=== PATIENT | male | born 1990 | race Two or more races ===

== ENCOUNTER 2020-08-29 01:37 | Emergency (ER) | payer OTHER ==
[~2020-08-29] VITALS: Ht 167.6 cm; Wt 81.6 kg
== END 2020-08-29 05:40 | disposition home or self-care (01) ==
LOC: ER 01:37
DX: B34.9 Viral infection, unspecified (principal); Z03.818 Encounter for observation for suspected exposure to other biological agents ruled out; R06.02 Shortness of breath; R05 Cough

== ENCOUNTER 2020-11-14 07:08 | Emergency (ER) | payer OTHER ==
[~2020-11-14] VITALS: Ht 167.6 cm; Wt 81.6 kg
== END 2020-11-14 09:12 | disposition home or self-care (01) ==
LOC: ER 07:08
DX: I10 Essential (primary) hypertension (principal); F06.4 Anxiety disorder due to known physiological condition

== ENCOUNTER 2021-06-04 17:22 | Emergency (ER) | payer OTHER ==
[~2021-06-04] VITALS: Ht 167.6 cm; Wt 81.6 kg
== END 2021-06-04 20:52 | disposition home or self-care (01) ==
LOC: ER 17:22
DX: U07.1 COVID-19 (principal); B34.9 Viral infection, unspecified; R50.9 Fever, unspecified; R51.9 Headache, unspecified; H92.02 Otalgia, left ear; R09.81 Nasal congestion

== ENCOUNTER 2021-06-13 17:13 | Inpatient (IN) | payer OTHER ==
[~2021-06-13] VITALS: Ht 167.6 cm; Wt 81.6 kg
--- NOTE | 2021-06-13 17:55 | NUR ---
SE RECIBE PTE MASCULINO ALERTA Y ORIENTADO EN [facility] E[facility]ER[facility] REFIERE COVID-19 POSITIVO , FALTA DE AIRE, TOS, SECRECIONES CLARAS DESDE HACE VARIOS RODNEY. INDICA VISITO APCH EL SABADO Y FUE DADO DE KRYSTEN BERNARDINO SINTOMAS PERSISTEN. SE UBICA EN [facility] Y SE PRESENTA PTE A .
--- NOTE | 2021-06-13 19:40 | NUR ---
PTE ALERTA,ESTABLE Y ORIENTADO.SE EDUCA SOBRE EL TRATAMIENTO QUE SE LE REALIZARA EN EL HOSPITAL Y ESTA REFIERE ENTENDER.
== END 2021-06-23 19:05 | disposition home or self-care (01) | DRG 177 ==
LOC: ER 17:13 → MEDJ 23:35
PROVIDERS: ADMIT Internal Medicine; ATTEND Internal Medicine
PROC: 8E0ZXY6 Isolation (ICD-10-PCS; 2021-06-13)
PROC: 3E0F7SF Introduction of Other Gas into Respiratory Tract, Via Natural or Artificial Opening (ICD-10-PCS; 2021-06-13)
PROC: XW033E5 Introduction of Remdesivir Anti-infective into Peripheral Vein, Percutaneous Approach, New Technology Group 5 (ICD-10-PCS; principal; 2021-06-14)
PROC: BW24ZZZ Computerized Tomography (CT Scan) of Chest and Abdomen (ICD-10-PCS; 2021-06-14)
PROC: 4A12X4Z Monitoring of Cardiac Electrical Activity, External Approach (ICD-10-PCS; 2021-06-14)
DX: U07.1 COVID-19 (principal); J12.82 Pneumonia due to coronavirus disease 2019; R09.02 Hypoxemia

== ENCOUNTER 2021-06-28 21:39 | Emergency (ER) | payer OTHER ==
[~2021-06-28] VITALS: Ht 167.6 cm; Wt 81.6 kg
[2021-06-29] MEDS ORDERED: ZITHROMAX500 MG PO (12:31)
== END 2021-06-29 12:32 | disposition home or self-care (01) ==
LOC: ER 21:39
DX: J22 Unspecified acute lower respiratory infection (principal); Z20.822 Contact with and (suspected) exposure to COVID-19; J11.1 Influenza due to unidentified influenza virus with other respiratory manifestations

== ENCOUNTER 2021-07-15 10:28 | Emergency (ER) | payer OTHER ==
[~2021-07-15] VITALS: Ht 167.6 cm; Wt 74.8 kg
[~2021-07-15 10:28] MED LIST: ZITHROMAX500 MG PO
== END 2021-07-15 13:43 | disposition home or self-care (01) ==
LOC: ER 10:28
DX: U07.1 COVID-19 (principal); J12.82 Pneumonia due to coronavirus disease 2019; M25.59 Pain in other specified joint

== ENCOUNTER 2021-07-20 14:15 | Outpatient (CLI) | payer OTHER | END 2021-07-20 14:17 | disposition home or self-care (01) | LOC: LAB 14:15 | PROVIDERS: ATTEND Internal Medicine | DX: U07.1 COVID-19 (principal); J12.82 Pneumonia due to coronavirus disease 2019 ==

== ENCOUNTER 2021-08-09 19:27 | Emergency (ER) | payer OTHER ==
[~2021-08-09] VITALS: Ht 167.6 cm; Wt 81.6 kg
== END 2021-08-09 23:26 | disposition home or self-care (01) ==
LOC: ER 19:27
DX: U07.1 COVID-19 (principal); J12.89 Other viral pneumonia; R06.02 Shortness of breath

== ENCOUNTER 2021-09-09 15:40 | Emergency (ER) | payer OTHER ==
[~2021-09-09] VITALS: Ht 167.6 cm; Wt 81.6 kg
== END 2021-09-09 17:29 | disposition home or self-care (01) ==
LOC: ER 15:40
DX: R06.02 Shortness of breath (principal); Z03.818 Encounter for observation for suspected exposure to other biological agents ruled out

== ENCOUNTER 2021-11-08 00:26 | Emergency (ER) | payer OTHER ==
[~2021-11-08] VITALS: Ht 167.6 cm; Wt 81.6 kg
[2021-11-08] MEDS ORDERED: COLCHICINE0.6 MG (01:28)
[2021-11-08] MEDS ORDERED: RAYOS5 MG (01:29)
[2021-11-08] MEDS ORDERED: MUCINEX DM ER1 EAC1 PO (04:46)
== END 2021-11-08 04:54 | disposition home or self-care (01) ==
LOC: ER 00:26
DX: J06.9 Acute upper respiratory infection, unspecified (principal); B34.9 Viral infection, unspecified; Z11.52 Encounter for screening for COVID-19

== ENCOUNTER 2021-11-19 23:19 | Emergency (ER) | payer OTHER ==
[~2021-11-19] VITALS: Ht 167.6 cm; Wt 81.6 kg
[~2021-11-19 23:19] MED LIST changes: +COLCHICINE0.6 MG; +MUCINEX DM ER1 EAC1 PO; +RAYOS5 MG
[2021-11-20] MEDS ORDERED: MUCINEX DM ER1 EAC1 PO (02:48)
[2021-11-20] MEDS ORDERED: MELATONIN10 M2 PO (02:48)
[2021-11-20] MEDS ORDERED: ACETAMINOPHEN650 M2 PO (02:48)
[2021-11-20] MEDS ORDERED: PROAIR RESPICL90 MCG IH (02:48)
[2021-11-20] MEDS ORDERED: VITAMIN C WIT1000 MG PO (02:48)
== END 2021-11-20 02:55 | disposition home or self-care (01) ==
LOC: ER 23:19
DX: U07.1 COVID-19 (principal); B34.9 Viral infection, unspecified

== ENCOUNTER 2021-11-22 23:56 | Emergency (ER) | payer OTHER ==
[~2021-11-22] VITALS: Ht 167.6 cm; Wt 81.6 kg
[~2021-11-22 23:56] MED LIST changes: +ACETAMINOPHEN650 M2 PO; +MELATONIN10 M2 PO; +PROAIR RESPICL90 MCG IH; +VITAMIN C WIT1000 MG PO
[2021-11-23] MEDS ORDERED: ZITHROMAX TRI-500 MG PO (10:20)
== END 2021-11-23 10:29 | disposition home or self-care (01) ==
LOC: ER 23:56
DX: U07.1 COVID-19 (principal); R06.02 Shortness of breath

== ENCOUNTER 2022-11-20 00:32 | Emergency (ER) | payer OTHER ==
[~2022-11-20] VITALS: Ht 167.6 cm; Wt 90.7 kg
[~2022-11-20 00:32] MED LIST changes: +ZITHROMAX TRI-500 MG PO
== END 2022-11-20 02:00 ==
LOC: ER 00:32
DX: R06.02 Shortness of breath (principal)

== ENCOUNTER 2023-04-07 04:16 | Emergency (ER) | payer OTHER ==
[~2023-04-07] VITALS: Ht 167.6 cm; Wt 81.6 kg
== END 2023-04-07 06:20 | disposition home or self-care (01) ==
LOC: ER 04:16
DX: J06.9 Acute upper respiratory infection, unspecified (principal)

== ENCOUNTER → 2024-12-09 | Emergency (ER) | payer OTHER ==
[~2024-12-09] VITALS: Ht 167.6 cm; Wt 99.8 kg
== END | disposition left against medical advice (07) ==
LOC: ER 03:22
DX: Z53.21 Procedure and treatment not carried out due to patient leaving prior to being seen by health care provider (principal)

== ENCOUNTER 2025-06-14 21:28 | Emergency (ER) | payer OTHER ==
[~2025-06-14] VITALS: Ht 167.6 cm; Wt 95.3 kg
[2025-06-14] MEDS ORDERED: IPRATROPIUM/ALBUTEROL SULFATE 3 ML AMPUL.NEB IH SCH (22:15)
[2025-06-14] MEDS ORDERED: BUDESONIDE 0.5 MG/2 ML AMPUL.NEB IH ONE (22:15)
[2025-06-15 01:37] LABS: BASO % 0.6 % (0.1-1.2); EOS # 0.15 (0.04-0.54); EOS % 1.3 % (0.7-7.0); LYMPH # 4.46 (1.18-3.74); LYMPH % 40.0 % (19.3-53.1); MEAN PLATELET VOLUME 10.00 fl (9.4-12.4); MONO # 0.69 (0.24-0.82); MONO % 6.2 % (4.7-12.5); NEUT # 5.73 (1.56-6.13); NEUT % 51.4 % (34.0-71.1); RED CELL DISTRIBUTION WIDTH 12.8 % (11.6-14.4)
[2025-06-15 01:56] LABS: COVID-19 AG NEGATIVE (NEGATIVE)
[2025-06-15] MEDS ORDERED: BUDESONIDE0.5 MG/2 M IH (03:05)
[2025-06-15] MEDS ORDERED: ALBUTEROL2.5 MG/3 M IH (03:05)
== END 2025-06-15 03:13 | disposition home or self-care (01) ==
LOC: ER 22:28
PROVIDERS: Preventive Medicine Public Health & General Preventive Medicine
DX: J45.909 Unspecified asthma, uncomplicated (principal); Z86.16 Personal history of COVID-19; Z20.822 Contact with and (suspected) exposure to COVID-19